=== PATIENT | female | born 1940 | race Caucasian/White ===

== ENCOUNTER 2020-05-02 11:45 | Observation (INO) | payer MEDICARE, BC ==
[~2020-05-02] VITALS: Ht 162.6 cm; Wt 79.5 kg
[~2020-05-02 11:45] MED LIST: ACETAMINOPHEN500 M1 PO; FLOMAX0.4 MG PO; HYDROCODON-ACE1 EAC7 PO; JANTOVEN5 MG PO; LEXAPRO10 MG PO; LIPITOR20 MG PO; LISINOPRIL40 MG PO; LOVENOX40 MG/0.4 SC; METOPROLOL TART25 MG; MIRALAX17 GM PO; OMEPRAZOLE20 M1 PO; SYNTHROID112 MCG PO; TRIAMTERENE-HC1 EAC3 PO; VANCOMYCIN 1 GM/1 G1 IV; XARELTO20 MG PO; ZOFRAN ODT4 MG/UDTAB PO
[2020-05-02 12:55] LABS: BASOPHILS 0.7 % (0-2); EOSINOPHILS 8.1 % (0-7); HEMATOCRIT 25.7 % (36.0-48.0); HEMOGLOBIN 8.5 g/dL (12-16); IMMATURE GRANULOCYTES 0.4 % (0-5); LYMPHOCYTE ABS# 1.32 10x3/uL (1.18-3.74); LYMPHOCYTES 19.7 % (15-50); MCH 29.2 pg (26.0-34.0); MCHC 33.1 g/dL (31.0-37.0); MCV 88.3 fL (80.0-100.0); MEAN PLATELET VOLUME 8.8 fL (7.4-10.4); NEUTROPHIL ABS# 3.69 10x3/uL (1.56-6.13); NEUTROPHILS 55.1 % (40-80); PLATELET COUNT 188 10x3/uL (130-400); RBC 2.91 10x6/uL (4.00-5.40); RDW 15.1 % (11.5-14.5); RETIC 2.41 % (0.45-2.28); WBC 6.7 10x3/uL (4.8-10.8)
[2020-05-02 13:02] LABS: ANION GAP 13.6 mmol/L (8-16); CALCIUM 8.7 mg/dL (8.5-10.1); CARBON DIOXIDE 21.1 mmol/L (21.0-32.0); CREATININE - SERUM 1.7 mg/dL (0.6-1.3); POTASSIUM - SERUM 5.7 mmol/L (3.5-5.1)
[2020-05-02 13:32] LABS: INR 2.48 (0.85-1.17)
[2020-05-02 13:33] LABS: ALBUMIN 3.8 g/dL (3.4-5.0); BILIRUBIN - TOTAL 0.53 mg/dL (0.2-1.3); MAGNESIUM - SERUM 1.9 mg/dL (1.8-2.4); PROTEIN - SERUM 7.5 g/dL (6.4-8.2)
[2020-05-02 13:50] LABS: % SATURATION 21 % (15-55); IRON 44 ug/dl (35-150); TOTAL IRON BIND CAPACITY 203 ug/dl (260-445); UNSAT IRON BIND CAPACITY 159 ug/dl (150-375)
[2020-05-02 16:42] VITALS: BP 101/62
[2020-05-02] MEDS ORDERED: BUPROPION HCL100 M1 PO (17:06)
[2020-05-02 18:03] VITALS: BP 94/56; Ht 162.6 cm; Wt 79.5 kg
[2020-05-02 20:00] VITALS: BP 109/54
[2020-05-03] VITALS: BP 140/62
[2020-05-03 04:00] VITALS: BP 113/63
[2020-05-03 06:26] LABS: BASOPHILS 0.5 % (0-2); EOSINOPHILS 9.5 % (0-7); HEMOGLOBIN 10.2 g/dL (12-16); IMMATURE GRANULOCYTES 0.5 % (0-5); LYMPHOCYTE ABS# 0.84 10x3/uL (1.18-3.74); LYMPHOCYTES 14.6 % (15-50); MCH 28.5 pg (26.0-34.0); MCHC 32.8 g/dL (31.0-37.0); MCV 86.9 fL (80.0-100.0); MEAN PLATELET VOLUME 8.8 fL (7.4-10.4); MONOCYTES 12.3 % (2-11); NEUTROPHILS 62.6 % (40-80); PLATELET COUNT 170 10x3/uL (130-400); RDW 15.7 % (11.5-14.5); WBC 5.8 10x3/uL (4.8-10.8)
[2020-05-03 06:27] LABS: RBC 3.58 10x6/uL (4.00-5.40)
[2020-05-03 06:28] LABS: HEMATOCRIT 31.1 % (36.0-48.0)
--- NOTE | 2020-05-03 06:39 | NUR ---
Pt A&OX4. Rested well in bed most of the night with exception of bathroom trips. No reactions from Blood transfused or new antidepressant. Pt denies pain t/o shift. Did c/o some discomfort with BM's and cramping that resolved after bathroom use. Stool sample was sent per order to lab. IV remained patent. SCD on per order to LLE. Brace to RLE.
[2020-05-03 06:40] LABS: ALBUMIN 3.7 g/dL (3.4-5.0); ANION GAP 13.8 mmol/L (8-16); BILIRUBIN - TOTAL 0.57 mg/dL (0.2-1.3); CARBON DIOXIDE 19.9 mmol/L (21.0-32.0); CREATININE - SERUM 1.5 mg/dL (0.6-1.3); PROTEIN - SERUM 7.2 g/dL (6.4-8.2)
[2020-05-03 06:41] LABS: POTASSIUM - SERUM 4.7 mmol/L (3.5-5.1)
--- NOTE | 2020-05-03 07:10 | NUR ---
REC'D IN BED AWAKE AND ALERT. RESP EVEN AND UNLABORED WITH NO DISTRESS MOTED. CAN EXPRESS NEEDS AND WANTS. DENIES ANY PAIN OR DISCOMFORT AT THIS TIME. UP AB [place] WITH STAND BY ASSISTANCE. ASSESSMENT COMPLETED. C/L IN REACH BEDSIDE.
[2020-05-03 09:16] VITALS: BP 122/69
--- NOTE | 2020-05-03 10:07 | NUR ---
DC HOME AT THIS TIME WITH ALL PERSONAL BELONGING DC SUMMARY GIVEN TO DAUGHTER CYNDY. STABLE CONDITION UPON DEPARTURE.
--- NOTE | 2020-05-03 17:21 | MORECARE ---
CASE MANAGEMENT DISCHARGE SUMMARY PATIENT: CIERRA CANCHOLA UNIT: [id number] ADM DATE: 05/02/20 AGE: 79 : 38 SEX: F ROOM/BED: D.2201 AUTHOR: MISTY,DOC PHYSICIAN: REFERRING PHYSICIAN: FAM AGARWAL MD DATE OF SERVICE: 05/03/20 Case Management Discharge Planning Summary COMMENTS ENTERED DATE: 05/03/20 17:12 CT COMMENT TYPE: Discharge Planning REVIEWER: Roland Kahn Phone call to Sravan Filomena BRADLEY Spoke with Melva. SOC will be Tuesday. Clinicals will be faxed to [phone]. CM will continue to follow and will assist as needed with dc plans/needs. DCP REVIEW SUMMARY ANTICIPATED D/C DATE: 05/03/2020 EXPECTED LOS : 1 CASE STATUS: DCP Initiated INITIAL REVIEW: 05/02/2020 INITIAL REVIEWER: Roland Kahn FINAL DISCHARGE DISPOSITION: : FINAL REVIEWER: FINAL REVIEW DATE: DCP Focus Questions & Answers - Added on: QUESTION: ANSWER : PATIENT: CIERRA CANCHOLA ENCOUNTER: [id number] MEDICAL RECORD#: [id number] ADMISSION DATE: 05/02/2020 DISCHARGE DATE: 05/03/2020 ATTENDING MD: : AGE: 79 MARITAL STATUS: W DC PLAN ID: [id number] FACILITY: [facility] PRINTED ON: 05/03/20 17:21 CT All edits/amendments must be made on the electronic document DICTATION DATE: 05/03/201720 INDUSTRIAL ORGANIZATION MANAGER: DAVI 05/03/201720 RPT#: [id number] DC DATE:05/03/20 STATUS: DIS IN [facility] [address] [place] [address] END OF REPORT
--- NOTE | 2020-05-05 14:59 | MORECARE ---
CASE MANAGEMENT DISCHARGE SUMMARY PATIENT: CIERRA CANCHOLA UNIT: [id number] ADM DATE: 05/02/20 AGE: 79 : 38 SEX: F ROOM/BED: D.2201 AUTHOR: MISTY,DOC PHYSICIAN: REFERRING PHYSICIAN: FAM AGARWAL MD DATE OF SERVICE: 05/05/20 Case Management Discharge Planning Summary COMMENTS ENTERED DATE: 05/03/20 17:12 CT COMMENT TYPE: Discharge Planning REVIEWER: Roland Kahn Phone call to Sravan Filomena BRADLEY Spoke with Melva. SOC will be Tuesday. Clinicals will be faxed to [phone]. CM will continue to follow and will assist as needed with dc plans/needs. DCP REVIEW SUMMARY ANTICIPATED D/C DATE: 05/03/2020 EXPECTED LOS : 1 CASE STATUS: DCP Initiated INITIAL REVIEW: 05/02/2020 INITIAL REVIEWER: Roland Kahn FINAL DISCHARGE DISPOSITION: : FINAL REVIEWER: FINAL REVIEW DATE: DCP Focus Questions & Answers - Added on: QUESTION: ANSWER : PATIENT: CIERRA CANCHOLA ENCOUNTER: [id number] MEDICAL RECORD#: [id number] ADMISSION DATE: 05/02/2020 DISCHARGE DATE: 05/03/2020 ATTENDING MD: : AGE: 79 MARITAL STATUS: W DC PLAN ID: [id number] FACILITY: [facility] PRINTED ON: 05/05/20 14:59 CT All edits/amendments must be made on the electronic document DICTATION DATE: 05/05/201458 COMPLIANCE PARALEGAL: DAVI 05/05/20 145 RPT#: [id number] DC DATE:05/03/20 STATUS: DIS IN [facility] [address] [place] [address] END OF REPORT
== END 2020-05-03 10:09 | disposition home or self-care (01) ==
LOC: OBSVTIME 11:45 → D.MS 11:45
PROVIDERS: Emergency Medicine; ADMIT Family Medicine; ATTEND Family Medicine
DX: N17.9 Acute kidney failure, unspecified (principal); I12.9 Hypertensive chronic kidney disease with stage 1 through stage 4 chronic kidney disease, or unspecified chronic kidney disease; N18.9 Chronic kidney disease, unspecified; D63.1 Anemia in chronic kidney disease; E87.5 Hyperkalemia; E87.1 Hypo-osmolality and hyponatremia; F41.8 Other specified anxiety disorders; E03.9 Hypothyroidism, unspecified; I48.91 Unspecified atrial fibrillation

== ENCOUNTER 2020-05-14 15:25 | Inpatient (IN) | payer MEDICARE, BC ==
[~2020-05-14] VITALS: Ht 162.6 cm; Wt 84.8 kg
[~2020-05-14 15:25] MED LIST changes: +BUPROPION HCL100 M1 PO
[2020-05-14 23:06] VITALS: BP 97/58; BMI 32.2
--- NOTE | 2020-05-15 03:21 | NUR ---
PT RESTING WITH EYES CLOSED. RESPIRATIONS EVEN AND UNLABORED. SHE HAS HER CPAP MACHINE ON. HER BED ALARM IS ON, BED IS LOW AND CALL LIGHT IS WITHIN REACH.
[2020-05-15 08:00] LABS: BASOPHILS 0.4 % (0-2); EOSINOPHILS 8.4 % (0-7); HEMATOCRIT 25.3 % (36.0-48.0); IMMATURE GRANULOCYTES 0.6 % (0-5); LYMPHOCYTE ABS# 0.69 10x3/uL (1.18-3.74); LYMPHOCYTES 13.6 % (15-50); MCH 28.9 pg (26.0-34.0); MCHC 31.6 g/dL (31.0-37.0); MCV 91.3 fL (80.0-100.0); MEAN PLATELET VOLUME 9.2 fL (7.4-10.4); MONOCYTES 15.9 % (2-11); NEUTROPHIL ABS# 3.11 10x3/uL (1.56-6.13); NEUTROPHILS 61.1 % (40-80); PLATELET COUNT 152 10x3/uL (130-400); RBC 2.77 10x6/uL (4.00-5.40); RDW 16.4 % (11.5-14.5); WBC 5.1 10x3/uL (4.8-10.8)
[2020-05-15 08:40] LABS: ANION GAP 12.4 mmol/L (8-16); CALCIUM 7.8 mg/dL (8.5-10.1); CARBON DIOXIDE 25.3 mmol/L (21.0-32.0); CREATININE - SERUM 1.3 mg/dL (0.6-1.3); POTASSIUM - SERUM 3.7 mmol/L (3.5-5.1)
--- NOTE | 2020-05-15 09:50 | NUR ---
PT RESTING IN BED WITH EYES OPEN CALL LIGHT IN REACH WILL MONITER
[2020-05-15 13:53] VITALS: Ht 162.6 cm; Wt 84.8 kg
--- NOTE | 2020-05-15 16:55 | RHP ---
PATIENT: CIERRA CANCHOLA MEDICAL RECORD: [id number] ACCOUNT: [id number] [facility] AD[facility]ION DATE: 05/14/20 REHABILITATION HISTORY AND PHYSICAL EXAMINATION POST ADMISSION PHYSICIAN EXAMINATION ADMITTING DIAGNOSIS: Total revision of a right knee. 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 She is an 79-year-old female and she did great here actually with us. She has been treated with antibiotics, antibiotic spacer. She had completed a 6-week course of antibiotics. She has been receiving physical therapy and has been progressed pretty well. She is currently being monitored closely for lab values and she is on a routine protocol for status post knee replacement. She has got proximal muscle weakness, fatigue, shortness of breath, debility, deconditioning, impaired gait, gait disturbance, fall risk and self-care deficits. These are barriers to her discharge home alone. She lives at home with her grandson, was independent with mobility and ADLs, using a rolling walker prior to this. She is currently set up for mod assist for ADLs, mod assist for mobility. She and her family would like for her to return home at her prior level of functioning. Comorbidities include atrial fib, anemia, hypertension, osteoarthritis, osteoporosis, sleep apnea and diverticulitis. PAST MEDICAL HISTORY: Significant for atrial fibrillation, anemia, osteoarthritis, hyperlipidemia, hypertension, hypothyroid, sleep apnea, bladder problems, GI problems, osteoporosis, diverticulitis. PAST SURGICAL HISTORY: Includes a right total knee in 08/2019, she had antibiotic spacer placed in 02/2020, cardiac catheterization, cataracts, bladder sling, EGD, hemorrhoidectomy, , split thickness skin grafting and now total replacement of her knee. ALLERGIES: No known drug allergies. CURRENT MEDICATIONS: Include metoprolol 12.5 mg b.i.d., Flomax 0.4 mg daily, she is on lisinopril 40 mg daily, Protonix 40 mg daily, Synthroid 112 mcg daily, Xarelto 20 mg at bedtime, Wellbutrin 100 mg b.i.d., atorvastatin 20 mg at bedtime, Zofran 4 mg every 4 hours p.r.n., [place] 5/325 one tab every 4 hours p.r.n. and Tylenol 650 every 4 hours p.r.n. HABITS: No alcohol or tobacco use. FAMILY HISTORY: Noncontributory. SOCIAL HISTORY: The patient hopes to return back home. She will live with her grandson. He does have a full-time job, but he does help with her. REVIEW OF SYSTEMS: GENERAL: Does complain of some weakness and fatigue. HEENT: Denies cold, cough or congestion. CARDIOVASCULAR: Denies any chest pain. PHYSICAL EXAMINATION: HISTORY AND PHYSICAL [id number] CIERRA CANCHOLA VITAL SIGNS: Stable and afebrile. GENERAL: An elderly female in no acute distress upon exam. HEENT: Normocephalic and atraumatic. Mucosa moist. NECK: Supple without no lymphadenopathy. LUNGS: Clear in upper cantrell. No wheezing or rales. HEART: Irregular rate and rhythm. ABDOMEN: Soft, benign, nondistended. Positive bowel sounds times 4. EXTREMITIES: No clubbing, cyanosis or edema. Postoperative area looks really good. NEUROLOGIC: She does have some weakness. LABORATORY DATA: White count is 5.0, H&H of 8 and 25 and platelet count is noted to be 152. Sodium 134, potassium 3.7, BUN and creatinine of 18 and 1.3 and blood sugar was noted to be 83. 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 The patient has potential to make improvement. We instituted the following multidisciplinary therapies including, not limited to physical, occupational, respiratory, speech, nutritional services, prosthetics and orthotics. Given her complex medical condition and risk of further medical complications, rehabilitation services cannot be provided at a low level of care such as custodial facility. PLAN: 1. Admit to [facility] for inpatient therapy to include the following disciplines; A. Physical therapy to improve gait, all transfer skills and bed mobility to a modified independent level. B. Occupational therapy to improve activities of daily living. C. Case management to help with discharge planning and placement options. D. Nutrition to assist with nutritional needs. E. Rehabilitation nursing to assist in monitoring the patient's underlying medical condition and to assist with any type of bowel or bladder management. 2. The patient's current medications and medical care will be continued. We will continue on Xarelto for prophylaxis of DVT and also for her AFib. 3. I am going to followup her blood counts in the morning. We will transfuse if necessary. TRANSINT:[id number] Voice Confirmation ID: [id number] DOCUMENT ID: [id number] KIM notes whether there has been none or any medical/functional change since admission: - No change since preadmission screen. KIM attests patient continues to be appropriate for IRF: - Continues to be appropriate. HISTORY AND PHYSICAL [id number] CIERRA CANCHOLA,AURORA MOFFETT MD at 1655 CC: [id number] DICTATION DATE: 05/15/20 1526 CHAINSTITCH ELASTIC ATTACHER: 05/15/20 1642 ADM IN [place] [id number] [place] [id number]
--- NOTE | 2020-05-15 17:54 | NUR ---
PT RESTING IN BED WITH EYES OPEN CALL LIGHT IN REACH NO PROBLEMS WILL MONITER
[2020-05-15 20:00] VITALS: BP 122/74
--- NOTE | 2020-05-16 01:25 | NUR ---
ASSISTED PT TO RESTROOM. SHE WAS GETTING BACK INTO BED NOTICED THERE WAS BLOOD ON THE MICHAEL WRAP AROUND HER RIGHT KNEE AND ALSO BLOOD ON HER SHEETS AND BLANKETS. REMOVED MICHAEL WRAP TO ASSESS THE DRESSING COVERING HER INCISION. THE SURGICAL DRESSING WAS SATURATED AND BLOOD WAS COMING OUT FROM UNDERNEATH THE LEFT SIDE OF THE DRESSING. SINCE THE INCISION WAS ACTIVELY BLEEDING WE REMOVED THE SURGICAL DRESSING. THERE WERE SEVERAL AREAS ALONG THE STAPLED SUTURE LINE THAT WERE BLEEDING. PRESSURE WAS PLACED FOR SEVERAL MINUTES USING 4X4S UNTIL THE BLEEDING STOPPED. INCISION WAS CLEANED WITH BETADINE. A SURGICAL AQUACEL AG DRESSING WAS USED TO COVER THE INCISION. AN ABD PAD WAS PLACED ON TOP OF THE SURGICAL DRESSING FOR REINFORCEMENT. KERLEX WAS USED TO KEEP THE ABD PAD IN PLACE. PRIOR TO AND AFTER THE DRESSING CHANGE PT HAS PITTING EDEMA TO HER RIGHT FOOT AND ANKLE. PEDAL PULSES ARE PALPABLE BUT WEAK. SHE HAS GENERALIZED SWELLING FROM HER ANKLE TO ABOVE HER RIGHT KNEE. SHE STATED, "THE [facility] OCCUPATIONAL THERAPIST TOLD ME THAT MY COMPRESSION SOCKS WERE NOT THE RIGHT ONES BECAUSE THEY DONT GO TO MY THIGH AND SHE TOOK THEM OFF PRIOR TO GIVING ME A BATH TODAY AND SAID I DIDNT NEED TO WEAR THEM." PT STATES THAT SHE WAS SURPRISED BY THIS SINCE SHE HAD THE SOCKS WITH HER THE DAY SHE HAD SURGERY AND THE SURGICAL TEAM WAS AWARE OF THE SOCKS SHE HAD AND HAD THE LEFT ONE ON BEFORE SURGERY AND HAD THE RIGHT ONE WITH HER AND PLACED IT ON HER AFTER SURGERY. SHE STATES HER PATRICIA THAT WORKS AT THE SURGICAL CENTER GOT HER THE SOCKS AND SHE WORE THEM LAST TIME SHE HAD KNEE SURGERY. REVIEWED THE ORDER FROM THE SURGICAL MD AND PLACED HER COMPRESSION SOCKS BACK ON HER PER MD ORDERS THAT SHE WEARS THEM FOR 2 WEEKS. CHANGED HER SHEETS. SHE DENIES PAIN. ASSISTED HER WITH HER CPAP. SHE DENIES FURTHER NEEDS. HER BED ALARM IS ON, BED IS LOW AND CALL LIGHT IS WITHIN REACH. ANKLE. PEDAL PULSES ARE PALPABLE BUT WEAK. SHE HAS GENERALIZED SWELLING FROM ANKLE TO ABOVE HER KNEE.
[2020-05-16 06:34] LABS: BASOPHILS 0.2 % (0-2); EOSINOPHILS 9.9 % (0-7); HEMATOCRIT 24.6 % (36.0-48.0); HEMOGLOBIN 7.7 g/dL (12-16); IMMATURE GRANULOCYTES 0.7 % (0-5); LYMPHOCYTE ABS# 0.96 10x3/uL (1.18-3.74); LYMPHOCYTES 21.6 % (15-50); MCH 28.9 pg (26.0-34.0); MCHC 31.3 g/dL (31.0-37.0); MCV 92.5 fL (80.0-100.0); MONOCYTES 17.1 % (2-11); NEUTROPHIL ABS# 2.25 10x3/uL (1.56-6.13); NEUTROPHILS 50.5 % (40-80); PLATELET COUNT 154 10x3/uL (130-400); RBC 2.66 10x6/uL (4.00-5.40); RDW 16.6 % (11.5-14.5); WBC 4.5 10x3/uL (4.8-10.8)
[2020-05-16 06:53] LABS: CALCIUM 8.3 mg/dL (8.5-10.1); CARBON DIOXIDE 29.1 mmol/L (21.0-32.0); CREATININE - SERUM 1.2 mg/dL (0.6-1.3); POTASSIUM - SERUM 4.1 mmol/L (3.5-5.1)
--- NOTE | 2020-05-16 13:29 | NUR ---
22g iv to right forearm x2 attempts. Covered with opsite date and initials.
--- NOTE | 2020-05-16 15:10 | NUR ---
1 UNIT OF PRBC STARTED ORDERED
--- NOTE | 2020-05-16 18:00 | NUR ---
PRBC FINISHED PT TOLERATED WELL
--- NOTE | 2020-05-16 20:00 | NUR ---
PATIENT USED CALL LIGHT FOR ASSIST. PATIENT MOD ASSIST OUT & INTO BED. PATIENT TOILETED & HAD VOID ONLY. RETURNED TO LOW BED. ALARM ON. CALL LIGHT WITHIN REACH. WILL CONTINUE TO MONITOR.
[2020-05-16 21:33] VITALS: BP 150/50
--- NOTE | 2020-05-17 02:57 | NUR ---
I have reviewed this patient and I concur with the Shift Assessment completed by the Licensed Practical Nurse today this shift.
--- NOTE | 2020-05-17 03:47 | NUR ---
PATIENT USED CALL LIGHT FOR ASSIST. MINIMAL ASSIST INTO & OUT OF WHEELCHAIR & BED. PATIENT HAD VOID ONLY. RETURNED TO LOW BED. CPAP BACK ON. ALARM ON. CALL LIGHT WITHIN REACH. WILL CONTINUE TO MONITOR.
--- NOTE | 2020-05-17 08:15 | NUR ---
SHE IS AWAKE, TALKING. HER RIGHT KNEE HAS A DRESSING WITH CLING INTACT AND KNEE HIGH HOSE ON. THE RIGHT KNEE IS SLIGHLTY RED AND WARM TO THE TOUCH ON THE INNER THIGH AREA. RATES HER PAIN A 3/10. SETTING UP FOR BREAKFAST. THE CALL LIGHT IS WITHIN REACH.
[2020-05-17 08:53] VITALS: BP 159/68
[2020-05-17 10:27] LABS: BASOPHILS 0.7 % (0-2); EOSINOPHILS 10.4 % (0-7); IMMATURE GRANULOCYTES 0.4 % (0-5); LYMPHOCYTE ABS# 0.81 10x3/uL (1.18-3.74); LYMPHOCYTES 17.6 % (15-50); MCH 28.7 pg (26.0-34.0); MCHC 31.6 g/dL (31.0-37.0); MCV 90.9 fL (80.0-100.0); MEAN PLATELET VOLUME 8.7 fL (7.4-10.4); MONOCYTES 14.5 % (2-11); NEUTROPHILS 56.4 % (40-80); PLATELET COUNT 169 10x3/uL (130-400); RDW 17.3 % (11.5-14.5); WBC 4.6 10x3/uL (4.8-10.8)
[2020-05-17 10:41] LABS: ALBUMIN 3.2 g/dL (3.4-5.0); ANION GAP 12.2 mmol/L (8-16); BILIRUBIN - TOTAL 0.65 mg/dL (0.2-1.3); CALCIUM 8.8 mg/dL (8.5-10.1); CARBON DIOXIDE 28.1 mmol/L (21.0-32.0); CREATININE - SERUM 1.3 mg/dL (0.6-1.3); POTASSIUM - SERUM 4.3 mmol/L (3.5-5.1); PROTEIN - SERUM 6.7 g/dL (6.4-8.2)
[2020-05-17 10:45] LABS: HEMATOCRIT 30.1 % (36.0-48.0); HEMOGLOBIN 9.5 g/dL (12-16); RBC 3.31 10x6/uL (4.00-5.40)
[2020-05-17 19:00] VITALS: BP 136/52
--- NOTE | 2020-05-17 20:00 | NUR ---
PATIENT RECEIVED LAYING IN BED. ASSESSMENT & VITAL SIGNS DONE. BED LOW. ALARM ON. CALLIGHT & BEDSIDE TABLE WITHIN REACH. WILL CONTINUE TO MONITOR.
--- NOTE | 2020-05-18 01:11 | NUR ---
PATIENT USED CALL LIGHT FOR ASSIST. PATIENT MINIMAL ASSIST INTO & OUT OF WHEELCHAIR.IN & OUT OF BED. VOID ONLY. PATIENT RETURNED TO LOW BED. ALARM ON. CALL LIGHT & BEDSIDE TABLE WITHIN REACH. WILL CONTINUE TO MONITOR.
[2020-05-18 08:00] VITALS: BP 101/56
--- NOTE | 2020-05-18 08:45 | NUR ---
SHE IS ALERT, TALKING. SHE IS USING THE WHEELCHAIR TO GO TO THE BATHROOM. SHE HAS A DRESSING TO THE RIGHT KNEE. SHE IS WEARING BIALTERAL ANDREZ HOSE. THE CALL LIGHT IS WITHIN REACH.
[2020-05-18 19:00] VITALS: BP 142/52
--- NOTE | 2020-05-18 20:00 | NUR ---
PATIENT RECEIVED SITTING UP IN BED. ASSESSMENT & VITAL SIGNS DONE. DRESSING C/D/I. PATIENT MINIMAL ASSIST WITH TOILETING. RETURNED TO LOW BED. ALARM ON. CALL LIGHT WITHIN REACH. WILL CONTINUE TO MONITOR.
--- NOTE | 2020-05-19 00:18 | NUR ---
PATIENT USSED CALL LIGHT FOR ASSIST. STANDBY ASSIST INTO & OUT OF WHEELCHAIR & BED. STANDBY ASSIST ON & OFF COMMODE. VOID ONLY. RETURNED TO LOW BED. CALL LIGHT & BEDSIDE TABLE WITHIN REACH. WILL CONTINUE TO MONITOR.
--- NOTE | 2020-05-19 04:51 | NUR ---
I have reviewed this patient and I concur with the Shift Assessment completed by the Licensed Practical Nurse today this shift.
[2020-05-19 06:31] LABS: BASOPHILS 0.5 % (0-2); EOSINOPHILS 12.7 % (0-7); HEMATOCRIT 29.2 % (36.0-48.0); HEMOGLOBIN 9.1 g/dL (12-16); IMMATURE GRANULOCYTES 0.7 % (0-5); LYMPHOCYTE ABS# 0.74 10x3/uL (1.18-3.74); LYMPHOCYTES 17.7 % (15-50); MCH 28.1 pg (26.0-34.0); MCHC 31.2 g/dL (31.0-37.0); MCV 90.1 fL (80.0-100.0); MEAN PLATELET VOLUME 8.7 fL (7.4-10.4); MONOCYTES 13.7 % (2-11); NEUTROPHIL ABS# 2.28 10x3/uL (1.56-6.13); NEUTROPHILS 54.7 % (40-80); PLATELET COUNT 169 10x3/uL (130-400); RBC 3.24 10x6/uL (4.00-5.40); RDW 16.9 % (11.5-14.5); WBC 4.2 10x3/uL (4.8-10.8)
[2020-05-19 06:44] LABS: ANION GAP 9.7 mmol/L (8-16); CALCIUM 8.8 mg/dL (8.5-10.1); CARBON DIOXIDE 29.1 mmol/L (21.0-32.0); CREATININE - SERUM 1.1 mg/dL (0.6-1.3); POTASSIUM - SERUM 3.8 mmol/L (3.5-5.1)
[2020-05-19 08:00] VITALS: BP 110/65
--- NOTE | 2020-05-19 08:00 | NUR ---
PT RESTING IN WHEELCHAIR CALL LIGHT IN REACH WILL MONITER
--- NOTE | 2020-05-19 12:18 | NUR ---
Nutrition Follow-up Diet: Cardiac PO intake: ~89% average x last 12 meals Last BM: 05/18/20 Wt: 187# (05/15/20) Meds and labs reviewed. Patient appears to be meeting estimated nutrition needs at this time via adequate PO intake. Recommend continue current diet. Will continue to honor food preferences within diet restrictions. RD will follow-up within 7 days.
--- NOTE | 2020-05-19 17:54 | NUR ---
PT RESTING IN BED WITH EYES OPEN CALL LIGHT IN REACH WILL MONITER
--- NOTE | 2020-05-19 19:17 | NUR ---
PT LAYING QUIETLY IN BED, NO IMMEDIATE NEEDS NOTED, FLUIDS/CL WITHIN REACH
[2020-05-19 19:27] VITALS: BP 114/75
--- NOTE | 2020-05-20 07:29 | NUR ---
PT RESTING IN BED WITH EYES OPEN CALL LIGHT IN REACH WILL MONITER
[2020-05-20 08:01] VITALS: BP 156/73
--- NOTE | 2020-05-20 10:52 | NUR ---
PATIENT ADMITTS TO REHAB FROM AN OUTSIDE FACILITY. DISCHARGE PLANS ARE FOR PATIENT TO RETURN TO HER HOME. WILL CONTINUE TO FOLLOW WITH PATIENT.
--- NOTE | 2020-05-20 18:10 | NUR ---
PT RESTING IN BED WITH EYES OPEN CALL LIGHT IN REACH WILL MONITER
[2020-05-20 20:08] VITALS: BP 125/68
--- NOTE | 2020-05-21 01:47 | NUR ---
PT RESTING WITH EYES CLOSED, RESPIRATIONS EVEN AND UNLABORED. SHE IS WEARING HER CPAP. HER BED IS LOW, BED ALARM ON AND CALL LIGHT IS WITHIN REACH.
--- NOTE | 2020-05-21 05:06 | NUR ---
IV TO LEFT FOREARM REMOVED. PT TOLERATED WITHOUT DIFFICULTY OR BLEEDING.
[2020-05-21 07:05] LABS: BASOPHILS 0.4 % (0-2); EOSINOPHILS 10.1 % (0-7); HEMATOCRIT 30.1 % (36.0-48.0); HEMOGLOBIN 9.5 g/dL (12-16); IMMATURE GRANULOCYTES 0.6 % (0-5); LYMPHOCYTE ABS# 0.72 10x3/uL (1.18-3.74); LYMPHOCYTES 15.5 % (15-50); MCH 28.5 pg (26.0-34.0); MCHC 31.6 g/dL (31.0-37.0); MCV 90.4 fL (80.0-100.0); MEAN PLATELET VOLUME 9.1 fL (7.4-10.4); MONOCYTES 12.7 % (2-11); NEUTROPHIL ABS# 2.83 10x3/uL (1.56-6.13); NEUTROPHILS 60.7 % (40-80); RBC 3.33 10x6/uL (4.00-5.40); RDW 16.8 % (11.5-14.5); WBC 4.7 10x3/uL (4.8-10.8)
[2020-05-21 07:14] LABS: ANION GAP 12.5 mmol/L (8-16); CALCIUM 8.7 mg/dL (8.5-10.1); CARBON DIOXIDE 26.6 mmol/L (21.0-32.0); CREATININE - SERUM 1.1 mg/dL (0.6-1.3); PLATELET COUNT 203 10x3/uL (130-400); POTASSIUM - SERUM 4.1 mmol/L (3.5-5.1)
[2020-05-21 07:58] VITALS: BP 92/56
[2020-05-21] MEDS ORDERED: HYDROCODON-ACE1 EAC7 PO (08:06)
--- NOTE | 2020-05-21 09:38 | NUR ---
PATIENT DISCHARGING HOME TODAY WITH FAMILY. [facility] WILL RESUME THERAPY AT HOME. NO COMPARE DATA REVIEWED PER PATIENT REQUEST. MARYBETH SIGNED, IMM SERVED AND EXPLAINED, ONE GIVEN TO PATIENT AND ONE FILED IN CHART.DR. VILLARREAL 05/27/20 @ 1:20, DR. CUNNINGHAM 05/28/20 @ 1:10. DISCHARGE INSTRUCTIONS FAXED TO PCP, HOME HEALTH AND REVIEWED WITH PATIENT.
== END 2020-05-21 11:56 | disposition home health service (06) | DRG 560 ==
LOC: D.REHAB 15:25
PROVIDERS: ADMIT Emergency Medicine; ATTEND Emergency Medicine
DX: Z47.1 Aftercare following joint replacement surgery (principal); K57.92 Diverticulitis of intestine, part unspecified, without perforation or abscess without bleeding; Z96.651 Presence of right artificial knee joint; I48.91 Unspecified atrial fibrillation; D64.9 Anemia, unspecified; I10 Essential (primary) hypertension; M19.90 Unspecified osteoarthritis, unspecified site; M81.0 Age-related osteoporosis without current pathological fracture; G47.30 Sleep apnea, unspecified; E78.5 Hyperlipidemia, unspecified

== ENCOUNTER 2020-07-17 12:06 | Outpatient (CLI) | payer MEDICARE, BC ==
[~2020-07-17] VITALS: Ht 162.6 cm; Wt 86.4 kg
[2020-07-17 15:52] VITALS: BP 141/48; Ht 162.6 cm; Wt 86.4 kg
--- NOTE | 2020-07-17 19:32 | NUR ---
1850 IV REMOVED AND PRESSURE HELD. INSTRUCTIONS GIVEN.
== END 2020-07-17 19:00 | disposition home or self-care (01) ==
LOC: D.OPS 12:06
PROVIDERS: ATTEND Internal Medicine Hematology & Oncology
DX: D64.9 Anemia, unspecified (principal)